=== PATIENT | female | born 1990 | race Caucasian/White ===

== ENCOUNTER 2017-06-03 13:46 | Emergency (ER) | payer MEDICAID, OTHER ==
[~2017-06-03] VITALS: Ht 167.6 cm; Wt 65.8 kg
[2017-06-03 15:04] LABS: Basophils # (auto) 0 uL; Basophils % (auto) 0.3 % (0.0-2.0); CONDITION Y; Eosinophils # (auto) 0 uL; Eosinophils % (auto) 0.3 % (0.0-7.0); Hematocrit 35.7 % (36.0-46.0); Hemoglobin 12.1 g/dL (12.2-16.2); Lymphocytes # (auto) 1.8 uL; Mean Corpuscular Hemoglobin 29.5 pg (28.0-32.0); Mean Corpuscular Hgb Conc. 33.8 g/dL (32.0-36.0); Mean Corpuscular Volume 87.2 fL (80.0-100.0); Mean Platelet Volume 9.3 fL (7.4-10.4); Monocytes # (auto) 0.5 uL; Monocytes % (auto) 6.3 % (0.0-12.0); Neutrophils # (auto) 6.1 uL; Neutrophils % (auto) 72.1 % (37.0-80.0); Platelet Count (auto) 286 10^3/uL (140-450); Red Cell Distribution Width 13.7 % (11.6-16.0); White Blood Cell 8.4 10^3/uL (4.4-10.8)
[2017-06-03 15:29] LABS: Albumin 3.4 g/dL (3.4-5.0); BUN/Creatinine Ratio 17.9; Calcium 8.7 mg/dL (8.5-10.1); Potassium 3.4 mmol/L (3.5-5.1)
[2017-06-03 15:36] LABS: Bilirubin, Total 0.3 mg/dL (0.2-1.0); Total Protein 7.4 g/dL (6.4-8.2)
[2017-06-03 16:06] LABS: Urine Bilirubin Negative (Negative); Urine Color Yellow (Yellow); Urine Glucose Normal (Normal); Urine Ketone Negative (Negative); Urine Nitrite Negative (Negative); Urine RBC 9 /hpf (0 - 4); Urine Squamous Epithelial Cell FEW /hpf (<5); Urine Urobilinogen Normal (Negative); Urine pH 6.5 (5.0-8.0)
[2017-06-03 16:08] LABS: Urine Blood 1+ /uL (Negative)
[2017-06-03] MEDS ORDERED: SODIUM CHLORIDE 0.9% 1,000 ML IV ONE (21:45)
[2017-06-03] MEDS ORDERED: cefTRIAXone 1GM/50ML D5W 50 ML IV ONE (21:45)
[2017-06-03 23:09] VITALS: BP 113/65
== END 2017-06-03 23:22 | disposition home or self-care (01) ==
LOC: ER 13:49
DX: O23.42 Unspecified infection of urinary tract in pregnancy, second trimester (principal); Z3A.16 16 weeks gestation of pregnancy
CPT/HCPCS: 36415; 76805; 80053; 81001; 84702; 85025; 96365; 99285; J0696

== ENCOUNTER 2017-10-08 12:00 | Observation (INO) | payer MEDICAID ==
[~2017-10-08] VITALS: Ht 167.6 cm; Wt 68.0 kg
[2017-10-08] MEDS ORDERED: TERBUTALINE SULFATE 1 MG/ML 1ML VIAL SC ONE (12:31)
[2017-10-08] MEDS ORDERED: NIF10C GT (12:50)
[2017-10-08] MEDS ORDERED: PREN-96 PO (12:50)
[2017-10-08] MEDS ORDERED: TERBUTALINE SULFATE 1 MG/ML 1ML VIAL SC SCH (13:00)
== END 2017-10-08 13:43 | disposition home or self-care (01) | DRG 563 ==
LOC: LDRP 12:00
PROVIDERS: ADMIT Specialist; ATTEND Specialist
DX: O60.03 Preterm labor without delivery, third trimester (principal); O62.9 Abnormality of forces of labor, unspecified; Z3A.37 37 weeks gestation of pregnancy
CPT/HCPCS: 59025; 81002; G0378; J3105

== ENCOUNTER 2017-10-11 10:15 | Observation (INO) | payer MEDICAID ==
[~2017-10-11 10:15] MED LIST: NIF10C GT; PREN-96 PO
== END 2017-10-11 11:10 | disposition home or self-care (01) | DRG 563 ==
LOC: LDRP 10:15
PROVIDERS: ADMIT Specialist; ATTEND Specialist
DX: O60.03 Preterm labor without delivery, third trimester (principal); O62.9 Abnormality of forces of labor, unspecified; Z3A.34 34 weeks gestation of pregnancy
CPT/HCPCS: 59025; 81002; G0378

== ENCOUNTER 2017-10-16 10:03 | Observation (INO) | payer MEDICAID | END 2017-10-16 14:40 | disposition home or self-care (01) | DRG 566 | LOC: LDRP 10:03 | PROVIDERS: ADMIT Specialist; ATTEND Specialist | DX: O62.9 Abnormality of forces of labor, unspecified (principal); O24.419 Gestational diabetes mellitus in pregnancy, unspecified control; Z3A.34 34 weeks gestation of pregnancy | CPT/HCPCS: 59025; 76818; 81002; 82962; G0378 ==

== ENCOUNTER 2017-10-22 16:00 | Observation (INO) | payer MEDICAID ==
[2017-10-22] MEDS ORDERED: BETAMETHASONE ACET (6MG/ML) 5ML VIAL IM ONE (16:45)
[2017-10-22 17:20] LABS: Basophils # (auto) 0 uL; Basophils % (auto) 0.2 % (0.0-2.0); Eosinophils # (auto) 0 uL; Eosinophils % (auto) 0.6 % (0.0-7.0); Hematocrit 29.1 % (36.0-46.0); Hemoglobin 9.6 g/dL (12.2-16.2); Lymphocytes # (auto) 0.9 uL; Lymphocytes % (auto) 12.1 % (10.0-50.0); Mean Corpuscular Hemoglobin 27.7 pg (28.0-32.0); Mean Corpuscular Hgb Conc. 33.1 g/dL (32.0-36.0); Monocytes # (auto) 0.5 uL; Monocytes % (auto) 6.3 % (0.0-12.0); Neutrophils # (auto) 5.9 uL; Neutrophils % (auto) 80.8 % (37.0-80.0); Platelet Count (auto) 174 10^3/uL (140-450); Red Blood Cells 3.47 10^6/uL (4.0-5.20); Red Cell Distribution Width 13.1 % (11.8-14.3); White Blood Cell 7.3 10^3/uL (4.4-10.8)
[2017-10-22 17:25] LABS: Albumin 2.2 g/dL (3.4-5.0); BUN/Creatinine Ratio 14.9; Potassium 3.4 mmol/L (3.5-5.1)
[2017-10-22 17:28] LABS: Bilirubin, Total 0.4 mg/dL (0.2-1.0); Total Protein 6.5 g/dL (6.4-8.2)
[2017-10-22 17:47] LABS: Urine Bacteria MANY /hpf (None Seen); Urine Blood Negative /uL (Negative); Urine Mucus FEW (None Seen); Urine Specific Gravity 1.029 (1.001-1.035); Urine WBC 9 /hpf (0 - 5)
[2017-10-23 04:06] LABS: RPR Non Reactive (Non Reactive)
[2017-10-23] MEDS ORDERED: NIFE10CA3 PO (18:55)
== END 2017-10-22 19:10 | disposition home or self-care (01) | DRG 566 ==
LOC: LDRP 16:00
PROVIDERS: ADMIT Specialist; ATTEND Specialist
DX: O62.9 Abnormality of forces of labor, unspecified (principal); O26.893 Other specified pregnancy related conditions, third trimester; O24.419 Gestational diabetes mellitus in pregnancy, unspecified control; R11.0 Nausea; Z3A.35 35 weeks gestation of pregnancy
CPT/HCPCS: 36415; 59025; 76818; 80053; 81001; 81002; 83036; 85025; 86592; 96372; G0378; J0702; J7030; 96365; 96366

== ENCOUNTER 2017-10-23 18:30 | Observation (INO) | payer MEDICAID ==
[~2017-10-23] VITALS: Ht 167.6 cm; Wt 77.1 kg
[2017-10-23] MEDS ORDERED: NIFE10CA3 PO (18:55)
[2017-10-23] MEDS ORDERED: BETAMETHASONE ACET (6MG/ML) 5ML VIAL IM ONE (19:00)
[2017-10-23 20:00] LABS: Urine Bacteria MOD /hpf (None Seen); Urine Blood 1+ /uL (Negative); Urine Mucus FEW (None Seen); Urine Specific Gravity 1.025 (1.001-1.035); Urine WBC 25 /hpf (0 - 5)
== END 2017-10-23 19:40 | disposition home or self-care (01) | DRG 566 ==
LOC: LDRP 18:30
PROVIDERS: ADMIT Specialist; ATTEND Specialist
DX: O24.419 Gestational diabetes mellitus in pregnancy, unspecified control (principal); Z3A.35 35 weeks gestation of pregnancy
CPT/HCPCS: 59025; 81001; 81002; 96372; G0378

== ENCOUNTER 2017-10-25 14:52 | Observation (INO) | payer MEDICAID ==
[~2017-10-25 14:52] MED LIST changes: -NIF10C GT; +NIFE10CA3 PO
== END 2017-10-25 17:20 | disposition home or self-care (01) | DRG 566 ==
LOC: LDRP 14:52
PROVIDERS: ADMIT Specialist; ATTEND Specialist
DX: O62.9 Abnormality of forces of labor, unspecified (principal); O24.419 Gestational diabetes mellitus in pregnancy, unspecified control; Z3A.36 36 weeks gestation of pregnancy
CPT/HCPCS: 59025; 76818; 81002; 82948; G0378

== ENCOUNTER 2017-10-28 15:10 | Observation (INO) | payer MEDICAID ==
[2017-10-28] MEDS ORDERED: TERBUTALINE SULFATE 1 MG/ML 1ML VIAL SC ONE ×2 (15:36→15:45)
== END 2017-10-28 16:32 | disposition home or self-care (01) | DRG 566 ==
LOC: LDRP 15:10
PROVIDERS: ADMIT Obstetrics & Gynecology; ATTEND Obstetrics & Gynecology
DX: O62.9 Abnormality of forces of labor, unspecified (principal); Z3A.36 36 weeks gestation of pregnancy
CPT/HCPCS: 59025; 81002; 96372; G0378; J3105

== ENCOUNTER 2017-11-01 13:50 | Observation (INO) | payer MEDICAID ==
[2017-11-01] MEDS ORDERED: GLY25T PO (15:03)
== END 2017-11-01 16:10 | disposition home or self-care (01) | DRG 563 ==
LOC: LDRP 13:50
PROVIDERS: ADMIT Obstetrics & Gynecology; ATTEND Obstetrics & Gynecology
DX: O60.03 Preterm labor without delivery, third trimester (principal); Z3A.37 37 weeks gestation of pregnancy
CPT/HCPCS: 59025; 76818; 81002; 82948; 82962; G0378

== ENCOUNTER 2017-11-04 14:07 | Observation (INO) | payer MEDICAID ==
[~2017-11-04] VITALS: Ht 30.5 cm; Wt 0.5 kg
[~2017-11-04 14:07] MED LIST changes: +GLY25T PO
== END 2017-11-04 16:15 | disposition home or self-care (01) | DRG 566 ==
LOC: LDRP 14:07
PROVIDERS: ADMIT Specialist; ATTEND Specialist
DX: O24.419 Gestational diabetes mellitus in pregnancy, unspecified control (principal); O62.9 Abnormality of forces of labor, unspecified; Z3A.37 37 weeks gestation of pregnancy
CPT/HCPCS: 59025; 76818; 81002; G0378

== ENCOUNTER 2017-11-07 13:00 | Inpatient (IN) | payer MEDICAID ==
[~2017-11-07] VITALS: Ht 172.7 cm; Wt 76.7 kg
[2017-11-07] MEDS ORDERED: LACT. RINGERS/OXYTOCIN 20UNITS 1,000 ML IV SCH (16:28)
[2017-11-07] MEDS ORDERED: LIDOCAINE 2%HCL (LOCAL ANESTH.) INJ 20ML MDV IJ ONE (16:30)
[2017-11-07] MEDS ORDERED: WITCH HAZEL-GLYCERIN PAD TOP PRN (16:30)
[2017-11-07] MEDS ORDERED: NALBUPHINE HCL 10 MG/1ml INJECTION IV PRN (16:30)
[2017-11-07] MEDS ORDERED: PROMETHAZINE HCL 25 MG/ML 1ML IV PRN (16:30)
[2017-11-07] MEDS ORDERED: PHISODERM TOP SOLN 240ML BTL TOP ONE (16:30)
[2017-11-07] MEDS ORDERED: TERBUTALINE SULFATE 1 MG/ML 1ML VIAL SC ONE (16:30)
[2017-11-07] MEDS ORDERED: DERMOPLAST 60ML BOTTLE TOP PRN (16:30)
[2017-11-07 17:46] LABS: Basophils # (auto) 0 uL; Basophils % (auto) 0.3 % (0.0-2.0); Eosinophils # (auto) 0 uL; Eosinophils % (auto) 0.3 % (0.0-7.0); Hematocrit 30.6 % (36.0-46.0); Hemoglobin 10.2 g/dL (12.2-16.2); Lymphocytes # (auto) 1.9 uL; Lymphocytes % (auto) 18.5 % (10.0-50.0); Mean Corpuscular Hemoglobin 27.1 pg (28.0-32.0); Mean Corpuscular Hgb Conc. 33.4 g/dL (32.0-36.0); Mean Corpuscular Volume 81.2 fL (80.0-100.0); Monocytes # (auto) 0.5 uL; Monocytes % (auto) 5.2 % (0.0-12.0); Neutrophils # (auto) 7.6 uL; Neutrophils % (auto) 75.7 % (37.0-80.0); Platelet Count (auto) 209 10^3/uL (140-450); Red Blood Cells 3.76 10^6/uL (4.0-5.20); Red Cell Distribution Width 13.7 % (11.8-14.3)
[2017-11-07 17:55] LABS: Albumin 2.6 g/dL (3.4-5.0); BUN/Creatinine Ratio 17.8; Calcium 8.8 mg/dL (8.5-10.1); Potassium 3.7 mmol/L (3.5-5.1)
[2017-11-07 17:57] LABS: INR 0.85 (0.9-1.15); Partial Thromboplastin Time 23.3 sec (22.64-33.71); Prothrombin Time 9.2 sec (9.37-12.3)
[2017-11-07 17:58] LABS: Bilirubin, Total 0.3 mg/dL (0.2-1.0); Total Protein 7.1 g/dL (6.4-8.2)
[2017-11-07] MEDS ORDERED: fentaNYL CITRATE 100 MCG/2 ML VL IV ONE (18:00)
[2017-11-07] MEDS ORDERED: ePHEDrine SULFATE 50 MG/ML AMP IV ONE ×2 (18:00→19:45)
[2017-11-07] MEDS ORDERED: NALOXONE HCL 0.4 MG/ML VIAL IV ONE ×2 (18:00→19:45)
[2017-11-07] MEDS ORDERED: CARBOPROST TROMETHAMINE 250 MCG/1ML VIAL IM ONE (18:00)
[2017-11-07] MEDS ORDERED: METHYLERGONOVINE MALEATE 0.2 MG/ML AMP IM ONE (18:00)
[2017-11-07] MEDS ORDERED: LIDOCAINE HCL 2 %PF INJ 10ML AMP IJ ONE (18:00)
[2017-11-07] MEDS ORDERED: fentaNYL W ROPIVACAINE 150 ML EPI SCH ×2 (18:00→19:45)
[2017-11-07] MEDS: LACTATED RINGER'S 1,000 ML IV SCH (18:45)
[2017-11-07 19:23] LABS: Urine Bacteria FEW /hpf (None Seen); Urine Blood TRACE /uL (Negative); Urine WBC 26 /hpf (0 - 5)
[2017-11-07] MEDS ORDERED: SODIUM CHLORIDE 0.9% 500 ML IV PRN (19:33)
[2017-11-07] MEDS ORDERED: ONDANSETRON HCL 4 MG/2 ML VIAL IV PRN (22:30)
[2017-11-07] MEDS ORDERED: ACETAMINOPHEN 325 MG TAB PO PRN (22:30)
[2017-11-07] MEDS: IBUPROFEN 600 MG TAB PO PRN (22:38)
[2017-11-07 23:35] VITALS: BP 130/69
[2017-11-08] MEDS: LACTATED RINGER'S 1,000 ML IV SCH ×2 (02:28→12:28)
[2017-11-08 03:30] VITALS: BP 125/59
[2017-11-08 08:00] VITALS: BP 136/90
[2017-11-08] MEDS: IBUPROFEN 600 MG TAB PO PRN ×2 (11:44→16:22)
[2017-11-08 12:00] VITALS: BP 134/76
[2017-11-08 16:00] VITALS: BP 133/84
[2017-11-08 20:24] VITALS: BP 136/84
[2017-11-08 23:50] VITALS: BP 125/75
[2017-11-09 03:35] VITALS: BP 134/82
[2017-11-09] MEDS: IBUPROFEN 600 MG TAB PO PRN (07:25)
[2017-11-09 07:31] VITALS: BP 135/79
== END 2017-11-09 11:45 | disposition home or self-care (01) | DRG 560 ==
LOC: LDRP 13:00 → OBSVTOIN 13:00 → LDRP 16:59
PROVIDERS: ADMIT Specialist; ATTEND Specialist
PROC: 3E0R3BZ Introduction of Anesthetic Agent into Spinal Canal, Percutaneous Approach (ICD-10-PCS; principal; 2017-11-07)
PROC: 10E0XZZ Delivery of Products of Conception, External Approach (ICD-10-PCS; 2017-11-07)
PROC: 00HU33Z Insertion of Infusion Device into Spinal Canal, Percutaneous Approach (ICD-10-PCS; 2017-11-07)
DX: O24.429 Gestational diabetes mellitus in childbirth, unspecified control (principal); Z91.040 Latex allergy status; Z37.0 Single live birth; Z3A.38 38 weeks gestation of pregnancy
CPT/HCPCS: 36415; 59025; 59409; 62282; 76818; 80053; 81001; 81002; 82962; 85025; 85610; 85730; 86850; 86900; 86901; 94762; 96365; 96366; J2590; J3010

== ENCOUNTER 2021-01-27 16:10 | Emergency (ER) | payer MEDICAID ==
[~2021-01-27] VITALS: Ht 167.6 cm; Wt 68.0 kg
[~2021-01-27 16:10] MED LIST changes: -NIFE10CA3 PO
[2021-01-27 17:20] LABS: Basophils # (auto) 0 10 ^3/uL (0-0.2); Basophils % (auto) 0.2 % (0.0-2.0); Eosinophils # (auto) 0 10 ^3/uL (0-0.8); Eosinophils % (auto) 0.3 % (0.0-7.0); Hematocrit 37.5 % (36.0-46.0); Hemoglobin 12.7 g/dL (12.2-16.2); Lymphocytes # (auto) 1.4 10 ^3/uL (0.4-5.4); Lymphocytes % (auto) 10.7 % (10.0-50.0); Mean Corpuscular Hemoglobin 29.1 pg (28.0-32.0); Mean Corpuscular Hgb Conc. 33.9 g/dL (32.0-36.0); Monocytes # (auto) 0.9 10 ^3/uL (0-1.3); Monocytes % (auto) 6.8 % (0.0-12.0); Nucleated Red Blood Cells % 0.1 %; Platelet Count (auto) 309 10^3/uL (140-450); Red Blood Cells 4.36 10^6/uL (4.0-5.20); Red Cell Distribution Width 13.5 % (11.8-14.3); White Blood Cell 13.4 10^3/uL (4.4-10.8)
[2021-01-27 17:26] LABS: Calcium 9.1 mg/dL (8.5-10.1); Potassium 3.6 mmol/L (3.5-5.1)
[2021-01-27 17:29] LABS: BUN/Creatinine Ratio 15.8; Bilirubin, Total 0.2 mg/dL (0.2-1.0); Total Protein 8.1 g/dL (6.4-8.2)
[2021-01-27 17:33] LABS: Urine Bacteria NONE SEEN /hpf (None Seen); Urine Blood 3+ /uL (Negative); Urine Mucus FEW (None Seen); Urine Specific Gravity 1.023 (1.001-1.035); Urine WBC 717 /hpf (0 - 5)
[2021-01-27] MEDS ORDERED: SODIUM CHLORIDE 0.9% 1,000 ML IV ONE (18:45)
[2021-01-27] MEDS ORDERED: cefTRIAXone 1GM/50ML D5W 50 ML IV ONE (18:45)
[2021-01-27 20:45] VITALS: BP 129/55
== END 2021-01-27 21:11 | disposition home or self-care (01) ==
LOC: ER 16:10
DX: O23.41 Unspecified infection of urinary tract in pregnancy, first trimester (principal); O20.8 Other hemorrhage in early pregnancy; Z3A.01 Less than 8 weeks gestation of pregnancy
CPT/HCPCS: 36415; 76801; 76817; 80053; 81001; 84702; 85025; 96365; 99285; J0696; J7030

== ENCOUNTER → 2023-06-04 | Outpatient (CLI) | payer MEDICAID ==
[~2023-06-04] MED LIST changes: -GLY25T PO; +GLYB2.5T9 PO
[2023-06-04 14:09] LABS: Urine Bacteria NONE SEEN /hpf (None Seen); Urine Blood 3+ /uL (Negative); Urine Clarity Clear (Clear); Urine Color Yellow (Yellow); Urine Hyaline Cast FEW /lpf (0 - 2); Urine Protein, UAD Negative (Negative); Urine Specific Gravity 1.024 (1.001-1.035); Urine Urobilinogen Normal (Negative); Urine WBC 2 /hpf (0 - 5)
== END | disposition home or self-care (01) ==
LOC: LAB 13:37
PROVIDERS: ATTEND Obstetrics & Gynecology
DX: N39.0 Urinary tract infection, site not specified (principal)
CPT/HCPCS: 81001; 87086

== ENCOUNTER 2023-07-30 11:14 | Observation (INO) | payer MEDICAID | END 2023-07-30 12:50 | disposition home or self-care (01) | LOC: UNDOADMOB 11:14 → LDRP 11:14 → UNDODISOB 12:50 | PROVIDERS: ADMIT Obstetrics & Gynecology; ATTEND Obstetrics & Gynecology | DX: O24.415 Gestational diabetes mellitus in pregnancy, controlled by oral hypoglycemic drugs (principal); Z3A.29 29 weeks gestation of pregnancy; Z79.84 Long term (current) use of oral hypoglycemic drugs | CPT/HCPCS: 59025; 81002; 82948; 94760; G0378 ==

== ENCOUNTER 2023-08-06 10:00 | Observation (INO) | payer MEDICAID ==
[2023-08-06] MEDS ORDERED: INSLANTI SC (10:29)
[2023-08-06] MEDS ORDERED: INSLISPI SC (10:29)
== END 2023-08-06 11:35 | disposition home or self-care (01) ==
LOC: LDRP 10:00
PROVIDERS: ADMIT Obstetrics & Gynecology; ATTEND Obstetrics & Gynecology
DX: O24.419 Gestational diabetes mellitus in pregnancy, unspecified control (principal); Z3A.30 30 weeks gestation of pregnancy; Z79.4 Long term (current) use of insulin
CPT/HCPCS: 59025; 81002; 94760; G0378

== ENCOUNTER 2023-08-13 11:22 | Observation (INO) | payer MEDICAID ==
[~2023-08-13 11:22] MED LIST changes: -GLYB2.5T9 PO; +INSLANTI SC; +INSLISPI SC
[2023-08-13] MEDS ORDERED: LACTATED RINGER'S 1,000 ML IV ONE (12:00)
[2023-08-13] MEDS ORDERED: NITR-87 PO (13:19)
== END 2023-08-13 13:22 | disposition home or self-care (01) ==
LOC: UNDOADMOB 11:22 → LDRP 11:22 → UNDODISOB 13:22
PROVIDERS: ADMIT Obstetrics & Gynecology; ATTEND Obstetrics & Gynecology
DX: O24.013 Pre-existing type 1 diabetes mellitus, in pregnancy, third trimester (principal); O23.43 Unspecified infection of urinary tract in pregnancy, third trimester; N39.0 Urinary tract infection, site not specified; Z79.4 Long term (current) use of insulin; Z3A.31 31 weeks gestation of pregnancy
CPT/HCPCS: 59025; 81002; 87086; 94760; G0378

== ENCOUNTER 2023-08-19 19:18 | Observation (INO) | payer MEDICAID ==
[~2023-08-19] VITALS: Ht 167.6 cm; Wt 76.2 kg
[~2023-08-19 19:18] MED LIST changes: +NITR-87 PO
[2023-08-19] MEDS ORDERED: HYDROcodone-ACET 5/325MG TAB PO PRN (20:00)
[2023-08-19 20:53] LABS: Basophils # (auto) 0 10 ^3/uL (0-0.2); Basophils % (auto) 0.2 % (0.0-2.0); Eosinophils # (auto) 0 10 ^3/uL (0-0.8); Eosinophils % (auto) 0.2 % (0.0-7.0); Hematocrit 32.2 % (36.0-46.0); Hemoglobin 10.5 g/dL (12.2-16.2); Lymphocytes # (auto) 1.4 10 ^3/uL (0.4-5.4); Lymphocytes % (auto) 15.1 % (10.0-50.0); Mean Corpuscular Hgb Conc. 32.7 g/dL (32.0-36.0); Mean Corpuscular Volume 85.5 fL (80.0-100.0); Monocytes # (auto) 0.7 10 ^3/uL (0-1.3); Monocytes % (auto) 7.6 % (0.0-12.0); Neutrophils # (auto) 7.1 10 ^3/uL (1.6-8.6); Neutrophils % (auto) 76.9 % (37.0-80.0); Nucleated Red Blood Cells % 0.1 %; Red Blood Cells 3.76 10^6/uL (4.0-5.20); Red Cell Distribution Width 12.9 % (11.8-14.3); White Blood Cell 9.2 10^3/uL (4.4-10.8)
[2023-08-19 21:03] LABS: Alanine Aminotransferase 79 U/L (7-40); Albumin 3.4 g/dL (3.2-4.8); Alkaline Phosphatase 104 U/L (46-116); Anion Gap 7 (5-15); Aspartate Aminotransferase 63 U/L (13-40); Bilirubin, Total 0.3 mg/dL (0.2-1.0); Calcium 8.7 mg/dL (8.5-10.1); Carbon Dioxide 24 mmol/L (20-30); Chloride 108 mmol/L (98-107); Glucose 116 mg/dL (74-106); Potassium 3.6 mmol/L (3.5-5.1); Sodium 139 mmol/L (136-145); Total Protein 6.1 g/dL (5.7-8.2)
[2023-08-19 21:18] LABS: BUN/Creatinine Ratio 7.1 (10.0-20.0); Blood Urea Nitrogen < 5 mg/dL (9-23)
[2023-08-19] MEDS ORDERED: HYDROmorphone HCL 2 MG/ML VL/or syr IV PRN (21:30)
[2023-08-19] MEDS ORDERED: LACTATED RINGER'S 1,000 ML IV SCH (21:30)
[2023-08-19] MEDS: ONDANSETRON HCL 4 MG/2 ML VIAL IV PRN (21:58)
[2023-08-19] MEDS: TERBUTALINE SULFATE 1 MG/ML 1ML VIAL SC SCH ×2 (22:10→23:13)
[2023-08-19 22:43] VITALS: BP 123/62; PULSE 101; RESP 16
[2023-08-19] MEDS ORDERED: CEFTRIAXONE SODIUM 2 GM in D5W 5% 100 ML IV SCH (23:00)
[2023-08-20] MEDS ORDERED: NIFEdipine 10 MG CAP PO ONE (01:15)
[2023-08-20 02:28] LABS: Hepatitis B Surface Antigen Negative (Negative)
[2023-08-20 02:49] LABS: Hepatitis A Ab IgM Negative; Hepatitis B Core IgM Negative
[2023-08-20 02:50] LABS: Hepatitis C Antibody Negative (Negative)
[2023-08-20] MEDS: ONDANSETRON HCL 4 MG/2 ML VIAL IV PRN (04:17)
[2023-08-20] MEDS: HYDROcodone-ACET 5/325MG TAB PO PRN ×2 (04:42→08:59)
[2023-08-20] MEDS ORDERED: NIFEdipine 10 MG CAP PO SCH (06:00)
[2023-08-20] MEDS ORDERED: BETAMETHASONE ACET (30mg/5ml) 5ml Vial 6mg/ml IM ONE (07:45)
[2023-08-20] MEDS ORDERED: HYDR-4902 PO ×2 (09:11→09:18)
[2023-08-20] MEDS ORDERED: NITR-87 PO (09:11)
[2023-08-20] MEDS ORDERED: PROGSUP4 VA (09:50)
[2023-08-20] MEDS ORDERED: NIF10C PO (09:51)
== END 2023-08-20 10:40 | disposition home or self-care (01) ==
LOC: LDRP 19:18
PROVIDERS: ADMIT Obstetrics & Gynecology; ATTEND Obstetrics & Gynecology
DX: O26.833 Pregnancy related renal disease, third trimester (principal); O23.03 Infections of kidney in pregnancy, third trimester; N13.6 Pyonephrosis; O47.03 False labor before 37 completed weeks of gestation, third trimester; O24.013 Pre-existing type 1 diabetes mellitus, in pregnancy, third trimester; Z79.4 Long term (current) use of insulin; Z87.442 Personal history of urinary calculi; Z3A.32 32 weeks gestation of pregnancy
CPT/HCPCS: 36415; 59025; 76775; 76805; 76818; 80053; 80074; 81002; 85025; 94760; 94762; 96360; 96361; 96365; 96366; 96372; 96374; 96375; 96376; G0378; J0696; J0702; J1170; J2405; J3105; J7030; J7060

== ENCOUNTER 2023-08-21 08:16 | Observation (INO) | payer MEDICAID ==
[~2023-08-21] VITALS: Ht 167.6 cm; Wt 81.6 kg
[~2023-08-21 08:16] MED LIST changes: +HYDR-4902 PO; +NIF10C PO; +PROGSUP4 VA
[2023-08-21] MEDS ORDERED: BETAMETHASONE ACET (30mg/5ml) 5ml Vial 6mg/ml IM ONE (08:30)
== END 2023-08-21 09:28 | disposition home or self-care (01) ==
LOC: LDRP 08:16 → UNDOADMOB 08:16 → LDRP 08:23
PROVIDERS: ADMIT Obstetrics & Gynecology; ATTEND Obstetrics & Gynecology
DX: O60.03 Preterm labor without delivery, third trimester (principal); O24.013 Pre-existing type 1 diabetes mellitus, in pregnancy, third trimester; Z3A.32 32 weeks gestation of pregnancy
CPT/HCPCS: 59025; 81002; 96372; G0378

== ENCOUNTER 2023-08-27 10:45 | Observation (INO) | payer MEDICAID ==
[2023-08-27 11:44] LABS: Basophils # (auto) 0 10 ^3/uL (0-0.2); Basophils % (auto) 0.6 % (0.0-2.0); Eosinophils # (auto) 0 10 ^3/uL (0-0.8); Eosinophils % (auto) 0.4 % (0.0-7.0); Hematocrit 32.2 % (36.0-46.0); Hemoglobin 10.5 g/dL (12.2-16.2); Lymphocytes # (auto) 1.6 10 ^3/uL (0.4-5.4); Lymphocytes % (auto) 20.4 % (10.0-50.0); Mean Corpuscular Hemoglobin 27.9 pg (28.0-32.0); Mean Corpuscular Hgb Conc. 32.6 g/dL (32.0-36.0); Mean Corpuscular Volume 85.7 fL (80.0-100.0); Monocytes # (auto) 0.5 10 ^3/uL (0-1.3); Monocytes % (auto) 6.4 % (0.0-12.0); Neutrophils # (auto) 5.7 10 ^3/uL (1.6-8.6); Neutrophils % (auto) 72.2 % (37.0-80.0); Red Blood Cells 3.75 10^6/uL (4.0-5.20); Red Cell Distribution Width 13.2 % (11.8-14.3); White Blood Cell 7.8 10^3/uL (4.4-10.8)
[2023-08-27 12:13] LABS: INR 0.92 (0.9-1.15); Partial Thromboplastin Time 22.6 SEC (24.5-34.5); Prothrombin Time 9.7 sec (9.3-11.8)
[2023-08-27 12:20] LABS: Urine Bacteria NONE SEEN /hpf (None Seen); Urine Blood Negative /uL (Negative); Urine Clarity Clear (Clear); Urine Color Colorless (Yellow); Urine Protein, UAD Negative (Negative); Urine Specific Gravity 1.023 (1.001-1.035); Urine Urobilinogen Normal (Negative); Urine WBC 1 /hpf (0 - 5); Urine pH 6.5 (5.0-8.0)
[2023-08-27 12:30] LABS: Protein, Urine 19.6 mg/dL (0.0-11.9)
[2023-08-27 12:31] LABS: Creatinine, Urine 49.26 mg/dL (30.0-125.0); Urine Protein/Creatinine Ratio 0.4
[2023-08-27 12:36] LABS: Alanine Aminotransferase 27 U/L (7-40); Albumin 3.5 g/dL (3.2-4.8); Alkaline Phosphatase 102 U/L (46-116); Anion Gap 8 (5-15); Aspartate Aminotransferase 15 U/L (13-40); Bilirubin, Total 0.3 mg/dL (0.2-1.0); Calcium 8.5 mg/dL (8.7-10.4); Carbon Dioxide 25 mmol/L (20-30); Chloride 105 mmol/L (98-107); Glucose 155 mg/dL (74-106); Potassium 3.7 mmol/L (3.5-5.1); Sodium 138 mmol/L (136-145); Uric Acid 3.2 mg/dL (3.1-7.8)
[2023-08-27 12:53] LABS: BUN/Creatinine Ratio 8.8 (10.0-20.0); Blood Urea Nitrogen < 5 mg/dL (9-23)
== END 2023-08-27 13:09 | disposition home or self-care (01) ==
LOC: LDRP 10:45 → UNDOADMOB 10:45 → LDRP 10:53 → UNDODISOB 13:09
PROVIDERS: ADMIT Obstetrics & Gynecology; ATTEND Obstetrics & Gynecology
DX: O24.419 Gestational diabetes mellitus in pregnancy, unspecified control (principal); O26.893 Other specified pregnancy related conditions, third trimester; R10.13 Epigastric pain; M79.89 Other specified soft tissue disorders; Z3A.33 33 weeks gestation of pregnancy
CPT/HCPCS: 36415; 59025; 76818; 80053; 81001; 81002; 82570; 84156; 84550; 85025; 85610; 85730; 94760; G0378

== ENCOUNTER 2023-08-30 12:08 | Observation (INO) | payer MEDICAID | END 2023-08-30 13:33 | disposition home or self-care (01) | LOC: LDRP 12:08 → UNDOADMOB 12:08 → LDRP 12:14 → UNDODISOB 13:33 | PROVIDERS: ADMIT Obstetrics & Gynecology; ATTEND Obstetrics & Gynecology | DX: O24.313 Unspecified pre-existing diabetes mellitus in pregnancy, third trimester (principal); O60.03 Preterm labor without delivery, third trimester; Z3A.33 33 weeks gestation of pregnancy; Z79.4 Long term (current) use of insulin | CPT/HCPCS: 59025; 76818; 81002; 94760; G0378 ==

== ENCOUNTER 2023-09-03 09:04 | Observation (INO) | payer MEDICAID | END 2023-09-03 13:20 | disposition home or self-care (01) | LOC: LDRP 11:05 | PROVIDERS: ADMIT Obstetrics & Gynecology; ATTEND Obstetrics & Gynecology | DX: O24.419 Gestational diabetes mellitus in pregnancy, unspecified control (principal); O60.03 Preterm labor without delivery, third trimester; Z3A.34 34 weeks gestation of pregnancy | CPT/HCPCS: 59025; 76818; 81002; 82948; 94760; G0378 ==

== ENCOUNTER 2023-09-06 07:52 | Observation (INO) | payer MEDICAID | END 2023-09-06 14:30 | disposition home or self-care (01) | LOC: LDRP 13:00 | PROVIDERS: ADMIT Obstetrics & Gynecology; ATTEND Obstetrics & Gynecology | DX: O24.419 Gestational diabetes mellitus in pregnancy, unspecified control (principal); O60.03 Preterm labor without delivery, third trimester; Z3A.34 34 weeks gestation of pregnancy | CPT/HCPCS: 59025; 76818; 81002; G0378 ==

== ENCOUNTER 2023-09-10 12:00 | Observation (INO) | payer MEDICAID ==
[2023-09-10] MEDS ORDERED: TERBUTALINE SULFATE 1 MG/ML 1ML VIAL SC SCH (13:00)
[2023-09-10] MEDS ORDERED: LACTATED RINGER'S 1,000 ML IV ONE (13:00)
[2023-09-10] MEDS ORDERED: NIFEdipine 10 MG CAP PO ONE (13:30)
[2023-09-10] MEDS ORDERED: MAGNESIUM SULFATE 40MG/ML 1,000 ML IV SCH (14:00)
[2023-09-10] MEDS ORDERED: MAGNESIUM SULFATE 100 ML IV ONE (14:00)
[2023-09-10] MEDS ORDERED: LORazepam 2MG/ML-1ML VIAL IV PRN (14:00)
== END 2023-09-10 14:13 | disposition home or self-care (01) ==
LOC: LDRP 12:00 → UNDOADMOB 12:00 → LDRP 12:08
PROVIDERS: ADMIT Obstetrics & Gynecology; ATTEND Obstetrics & Gynecology
DX: O60.03 Preterm labor without delivery, third trimester (principal); O62.9 Abnormality of forces of labor, unspecified; Z3A.35 35 weeks gestation of pregnancy
CPT/HCPCS: 59025; 76817; 76818; 81002; 96360; 96361; G0378

== ENCOUNTER → 2023-09-11 | Outpatient (CLI) | payer MEDICAID ==
[2023-09-11 10:27] LABS: Basophils # (auto) 0 10 ^3/uL (0-0.2); Basophils % (auto) 0.2 % (0.0-2.0); Eosinophils # (auto) 0 10 ^3/uL (0-0.8); Eosinophils % (auto) 0.3 % (0.0-7.0); Hemoglobin 11.5 g/dL (12.2-16.2); Lymphocytes # (auto) 1.9 10 ^3/uL (0.4-5.4); Lymphocytes % (auto) 21.8 % (10.0-50.0); Mean Corpuscular Hemoglobin 27.7 pg (28.0-32.0); Mean Corpuscular Hgb Conc. 32.7 g/dL (32.0-36.0); Mean Corpuscular Volume 84.6 fL (80.0-100.0); Monocytes # (auto) 0.5 10 ^3/uL (0-1.3); Monocytes % (auto) 5.6 % (0.0-12.0); Neutrophils # (auto) 6.4 10 ^3/uL (1.6-8.6); Neutrophils % (auto) 72.1 % (37.0-80.0); Red Blood Cells 4.14 10^6/uL (4.0-5.20); Red Cell Distribution Width 13.5 % (11.8-14.3); White Blood Cell 8.9 10^3/uL (4.4-10.8)
[2023-09-12 07:06] LABS: RPR Non Reactive (Non Reactive)
[2023-09-12 09:06] LABS: Treponema Pallidum Ab LC Non Reactive (Non Reactive)
== END | disposition home or self-care (01) ==
LOC: LAB 10:04
PROVIDERS: ATTEND Obstetrics & Gynecology
DX: Z34.83 Encounter for supervision of other normal pregnancy, third trimester (principal); Z3A.35 35 weeks gestation of pregnancy
CPT/HCPCS: 36415; 84112; 85025; 86592

== ENCOUNTER 2023-09-21 09:50 | Observation (INO) | payer MEDICAID ==
[2023-09-21 11:22] LABS: Fern Testing Negative
[2023-09-21 12:25] LABS: Fern Testing Negative
== END 2023-09-21 13:03 | disposition home or self-care (01) ==
LOC: LDRP 09:50
PROVIDERS: ADMIT Obstetrics & Gynecology; ATTEND Obstetrics & Gynecology
DX: O62.9 Abnormality of forces of labor, unspecified (principal); O24.419 Gestational diabetes mellitus in pregnancy, unspecified control; Z3A.36 36 weeks gestation of pregnancy
CPT/HCPCS: 59025; 76805; 76818; 81002; 84112; G0378; Q0114

== ENCOUNTER 2023-09-27 23:01 | Inpatient (IN) | payer MEDICAID ==
[~2023-09-27] VITALS: Ht 167.6 cm; Wt 81.6 kg
[~2023-09-27 23:01] MED LIST changes: -NIF10C PO; -PROGSUP4 VA
[2023-09-28 00:38] LABS: Basophils # (auto) 0 10 ^3/uL (0-0.2); Basophils % (auto) 0.4 % (0.0-2.0); Eosinophils # (auto) 0 10 ^3/uL (0-0.8); Eosinophils % (auto) 0.3 % (0.0-7.0); Hematocrit 31.2 % (36.0-46.0); Hemoglobin 10.1 g/dL (12.2-16.2); Lymphocytes # (auto) 2.3 10 ^3/uL (0.4-5.4); Lymphocytes % (auto) 22.7 % (10.0-50.0); Mean Corpuscular Hemoglobin 27.3 pg (28.0-32.0); Mean Corpuscular Hgb Conc. 32.5 g/dL (32.0-36.0); Monocytes # (auto) 0.7 10 ^3/uL (0-1.3); Monocytes % (auto) 6.8 % (0.0-12.0); Neutrophils # (auto) 7.2 10 ^3/uL (1.6-8.6); Neutrophils % (auto) 69.8 % (37.0-80.0); Red Blood Cells 3.71 10^6/uL (4.0-5.20); White Blood Cell 10.2 10^3/uL (4.4-10.8)
[2023-09-28 00:39] LABS: Albumin 3.7 g/dL (3.2-4.8); Alkaline Phosphatase 122 U/L (46-116); Anion Gap 8 (5-15); Aspartate Aminotransferase 14 U/L (13-40); BUN/Creatinine Ratio 10.4 (10.0-20.0); Blood Urea Nitrogen 7 mg/dL (9-23); Calcium 8.8 mg/dL (8.7-10.4); Carbon Dioxide 23 mmol/L (20-30); Chloride 105 mmol/L (98-107); Glucose 121 mg/dL (74-106); Potassium 3.9 mmol/L (3.5-5.1); Sodium 136 mmol/L (136-145); Uric Acid 4.2 mg/dL (3.1-7.8)
[2023-09-28 00:40] LABS: Bilirubin, Total 0.4 mg/dL (0.2-1.0); Total Protein 6.5 g/dL (5.7-8.2)
[2023-09-28 00:44] LABS: Alanine Aminotransferase < 9 U/L (7-40)
[2023-09-28 00:46] LABS: Urine Bacteria NONE SEEN /hpf (None Seen); Urine Blood Negative /uL (Negative); Urine Clarity Clear (Clear); Urine Color Yellow (Yellow); Urine Protein, UAD TRACE (Negative); Urine Specific Gravity 1.017 (1.001-1.035); Urine Urobilinogen Normal (Negative); Urine WBC 7 /hpf (0 - 5); Urine pH 6.5 (5.0-8.0)
[2023-09-28 00:52] LABS: INR 0.9 (0.9-1.15); Partial Thromboplastin Time 24.1 SEC (24.5-34.5); Prothrombin Time 9.5 sec (9.3-11.8)
[2023-09-28 01:31] LABS: Protein, Urine 32.4 mg/dL (0.0-11.9)
[2023-09-28 01:34] LABS: Creatinine, Urine 80.85 mg/dL (30.0-125.0); Urine Protein/Creatinine Ratio 0.4
[2023-09-28 01:47] LABS: Amphetamine Screen, Urine Neg (NEGATIVE); Barbiturate Scree,Urine Neg (NEGATIVE); Benzodiazephine Screen, Urine Neg (NEGATIVE); Cocaine Screen, Urine Neg (NEGATIVE); Opiate Scree,Urine Neg (NEGATIVE)
[2023-09-28 01:48] LABS: Cannabinoid Screen, Urine Neg (NEGATIVE); Phencyclidine Screen, Urine Neg (NEGATIVE)
[2023-09-28] MEDS ORDERED: LIDOCAINE 2%HCL (LOCAL ANESTH.) INJ 20ML MDV IJ PRN (02:00)
[2023-09-28] MEDS ORDERED: PHISODERM TOP SOLN 240ML BTL TOP PRN (02:00)
[2023-09-28] MEDS ORDERED: WITCH HAZEL-GLYCERIN PAD TOP PRN (02:00)
[2023-09-28] MEDS ORDERED: ACCU-CHEK COMFORT CURVE STRIP VI SCH (02:00)
[2023-09-28] MEDS ORDERED: DERMOPLAST 60ML BOTTLE TOP PRN (02:00)
[2023-09-28] MEDS ORDERED: PROMETHAZINE HCL 25 MG/ML 1ML IV PRN (02:00)
[2023-09-28] MEDS ORDERED: LACTATED RINGER'S 1,000 ML IV SCH (02:00)
[2023-09-28] MEDS ORDERED: TERBUTALINE SULFATE 1 MG/ML 1ML VIAL SC PRN (02:15)
[2023-09-28] MEDS ORDERED: LACT. RINGERS/OXYTOCIN 20UNITS 1,000 ML IV SCH (02:15)
[2023-09-28] MEDS ORDERED: LACT. RINGERS/OXYTOCIN 20UNITS 500 ML IV ONE ×2 (02:15→02:45)
[2023-09-28] MEDS ORDERED: METHYLERGONOVINE MALEATE 0.2 MG/ML AMP IM ONE (02:30)
[2023-09-28] MEDS ORDERED: miSOPROStol 100 mcg TAB PR PRN (02:30)
[2023-09-28] MEDS ORDERED: CARBOPROST TROMETHAMINE 250 MCG/1ML VIAL IM PRN (02:30)
[2023-09-28] MEDS ORDERED: miSOPROStol 100 mcg TAB SL PRN (02:30)
[2023-09-28] MEDS ORDERED: ONDANSETRON HCL 4 MG/2 ML VIAL IV PRN (02:30)
[2023-09-28] MEDS ORDERED: LACTATED RINGER'S 2,000 ML IV ONE (03:00)
[2023-09-28] MEDS ORDERED: ePHEDrine SULFATE 50 MG/ML AMP IV ONE (04:15)
[2023-09-28] MEDS ORDERED: NALOXONE HCL 0.4 MG/ML VIAL IV ONE (04:15)
[2023-09-28] MEDS ORDERED: ROPIVACAINE HCL 100 ML ONE ×2 (04:31→06:40)
[2023-09-28] MEDS ORDERED: fentaNYL CITRATE 100 MCG/2 ML VL ONE (06:40)
[2023-09-28] MEDS ORDERED: ePHEDrine SULFATE 50 MG/ML AMP ONE (06:40)
[2023-09-28] MEDS ORDERED: LIDOCAINE HCL 2 %PF INJ 10ML AMP IJ ONE (07:19)
[2023-09-28] MEDS ORDERED: DIPHENOXYLATE W/ATROPINE 2.5 MG TAB PO SCH (10:00)
[2023-09-28] MEDS ORDERED: ACETAMINOPHEN 325 MG TAB PO PRN (10:30)
[2023-09-28] MEDS ORDERED: ONDANSETRON ODT 4 MG TAB PO PRN (10:30)
[2023-09-28 15:00] VITALS: BP 134/84; PULSE 83; RESP 18; TEMP 98.8; O2SAT 98
[2023-09-28] MEDS: IBUPROFEN 600 MG TAB PO PRN (17:46)
[2023-09-28] MEDS ORDERED: DOCUSATE SOD 100 MG CAP PO SCH (22:00)
[2023-09-28 22:35] VITALS: BP 129/78; PULSE 76; RESP 16; TEMP 98.7; O2SAT 98
[2023-09-29 02:20] VITALS: BP 124/79; PULSE 84; RESP 16; TEMP 98; O2SAT 99
[2023-09-29 07:00] VITALS: BP 137/82; PULSE 93; RESP 18; TEMP 98.1; O2SAT 100
[2023-09-29] MEDS: IBUPROFEN 600 MG TAB PO PRN (07:15)
[2023-10-01 06:06] LABS: RPR Non Reactive (Non Reactive)
[2023-10-01 19:06] LABS: Treponema pallidum Ab (FTA-Ab) Non Reactive (Non Reactive)
== END 2023-09-29 11:53 | disposition home or self-care (01) | DRG 560 ==
LOC: LDRP 23:01 → UNDOADMOB 23:01 → INTOOBSV 09-28 01:50 → OBSVTOIN 09-28 01:50 → LDRP 09-28 02:05
PROVIDERS: ADMIT Obstetrics & Gynecology; ATTEND Obstetrics & Gynecology
PROC: 10E0XZZ Delivery of Products of Conception, External Approach (ICD-10-PCS; principal; 2023-09-28)
PROC: 0HQ9XZZ Repair Perineum Skin, External Approach (ICD-10-PCS; 2023-09-28)
PROC: 3E0R3BZ Introduction of Anesthetic Agent into Spinal Canal, Percutaneous Approach (ICD-10-PCS; 2023-09-28)
PROC: 00HU33Z Insertion of Infusion Device into Spinal Canal, Percutaneous Approach (ICD-10-PCS; 2023-09-28)
DX: O70.0 First degree perineal laceration during delivery (principal); Z37.0 Single live birth; O24.02 Pre-existing type 1 diabetes mellitus, in childbirth; O60.14X0 Preterm labor third trimester with preterm delivery third trimester, not applicable or unspecified; Z3A.37 37 weeks gestation of pregnancy; Z91.040 Latex allergy status; Z79.899 Other long term (current) drug therapy; Z79.4 Long term (current) use of insulin
CPT/HCPCS: 36415; 59025; 59409; 62282; 80053; 80307; 81001; 81002; 82570; 84156; 84550; 85025; 85610; 85730; 86592; 86850; 86900; 86901; 94760; 94762; 96360; 96361; 96365; 96366; G0378; J2590